=== PATIENT | female | born 1950 | race Caucasian/White ===

== ENCOUNTER 2017-06-13 16:17 | Inpatient (IN) | payer OTHER ==
[~2017-06-13] VITALS: Ht 167.6 cm; Wt 115.4 kg
[2017-06-13 17:30] VITALS: BP 131/61
[2017-06-13] MEDS ORDERED: METOPROLOL TART75 MG PO (18:01)
[2017-06-13] MEDS ORDERED: LISINOPRIL20 MG PO (18:03)
[2017-06-13] MEDS ORDERED: PAIN RELIEVER325 MG PO (18:04)
[2017-06-13] MEDS ORDERED: SENNA-EXTRA17.2 MG PO (18:07)
[2017-06-13] MEDS ORDERED: ASPIRIN81 M2 PO (18:08)
[2017-06-13] MEDS ORDERED: HEPARIN SO5000 UNIT4 SQ (18:10)
[2017-06-13] MEDS ORDERED: ATORVASTATIN CA80 MG PO (18:11)
[2017-06-13 23:02] VITALS: BP 133/60
[2017-06-14 05:36] VITALS: BP 109/74
[2017-06-14 07:50] LABS: HEMATOCRIT 37.5 % (36.0-46.0); MCH 29.9 PG (29.0-34.0); MCHC 34.1 G/DL (30.0-36.0); MCV 87.6 FL (83-99); MEAN PLAT.VOLUME 10.4 uM^3 (9.5-12.4); PLATELET COUNT 238 K/uL (156-360); RBC DIS.WIDTH-CV 12.1 % (11.8-14.6); RBC DIS.WIDTH-SD 38.9 % (39-53); RED BLOOD COUNT 4.28 M/uL (3.80-5.20); WHITE BLOOD COUNT 7.8 K/uL (4.1-10.2)
[2017-06-14 08:18] LABS: ALKALINE PHOSPHATASE 90 IU/L (3-129); ANION GAP 9 MEQ/L (2-14); CHLORIDE 107 MEQ/L (99-109); GFR ESTIMATE (CALCULATED) > 59 mL/min/; GLUCOSE 95 mg/dL (70-99); POTASSIUM 4.1 MEQ/L (3.7-5.4); SAMPLE HEMOLYSIS CHECK 0; SAMPLE ICTERIC CHECK 0; SAMPLE LIPEMIA CHECK 0; SODIUM 141 MEQ/L (136-147); UREA NITROGEN (BUN) 14 mg/dL (9-23)
[2017-06-14 15:16] VITALS: BP 101/51
[2017-06-14 23:54] VITALS: BP 134/90
[2017-06-15 05:54] VITALS: BP 124/82
[2017-06-15 12:34] VITALS: BP 110/76
[2017-06-15 15:19] VITALS: BP 116/64
[2017-06-16 04:42] VITALS: BP 105/81
[2017-06-16 15:13] VITALS: BP 96/58
[2017-06-17 04:43] VITALS: BP 100/75
[2017-06-17 09:00] VITALS: BP 105/63
[2017-06-17 10:00] VITALS: BP 118/55
[2017-06-17 11:50] LABS: C DIFF TOXIN NEGATIVE (NEGATIVE)
[2017-06-17 11:52] LABS: PROBE CHECK PASS; SPECIMEN PROCESSING CONTROL PASS
[2017-06-17 16:00] VITALS: BP 100/65
[2017-06-18 05:32] VITALS: BP 131/58
[2017-06-18 15:13] VITALS: BP 115/61
[2017-06-19 05:52] VITALS: BP 115/84
[2017-06-19 14:06] VITALS: BP 146/67
[2017-06-19 15:49] VITALS: BP 112/57
[2017-06-20 05:36] VITALS: BP 145/67
[2017-06-20 15:37] VITALS: BP 106/57
[2017-06-20 16:39] LABS: POINT-OF-CARE METER ID UU13113720
[2017-06-20 21:44] LABS: POINT-OF-CARE METER ID UU13113720
[2017-06-21 05:27] VITALS: BP 137/85
[2017-06-21 15:15] VITALS: BP 11/72
[2017-06-22 05:30] VITALS: BP 128/76
[2017-06-22 15:10] VITALS: BP 112/65
[2017-06-23 04:43] VITALS: BP 138/62
[2017-06-23 06:31] LABS: HEMATOCRIT 41.3 % (36.0-46.0); MCH 29.5 PG (29.0-34.0); MCHC 32.7 G/DL (30.0-36.0); MCV 90.2 FL (83-99); MEAN PLAT.VOLUME 10.9 uM^3 (9.5-12.4); PLATELET COUNT 260 K/uL (156-360); RBC DIS.WIDTH-CV 12.6 % (11.8-14.6); RBC DIS.WIDTH-SD 40.4 % (39-53); RED BLOOD COUNT 4.58 M/uL (3.80-5.20); WHITE BLOOD COUNT 6.2 K/uL (4.1-10.2)
[2017-06-23 06:55] LABS: ALKALINE PHOSPHATASE 89 IU/L (3-129); ANION GAP 9 MEQ/L (2-14); CHLORIDE 106 MEQ/L (99-109); GFR ESTIMATE (CALCULATED) > 59 mL/min/; GLUCOSE 99 mg/dL (70-99); SAMPLE HEMOLYSIS CHECK 0; SAMPLE ICTERIC CHECK 0; SAMPLE LIPEMIA CHECK 0; SODIUM 143 MEQ/L (136-147); TOTAL BILIRUBIN 1.3 MG/DL (0.0-1.0); UREA NITROGEN (BUN) 15 mg/dL (9-23)
[2017-06-23 15:15] VITALS: BP 90/64
[2017-06-23 15:18] VITALS: BP 93/61
[2017-06-24 05:27] VITALS: BP 113/75
[2017-06-24 15:30] VITALS: BP 100/62
[2017-06-24 20:22] VITALS: BP 130/70
[2017-06-25 04:38] VITALS: BP 119/79
[2017-06-25 15:04] VITALS: BP 118/70
[2017-06-25 20:38] VITALS: BP 114/70
[2017-06-26 05:33] VITALS: BP 128/74
[2017-06-26 15:10] VITALS: BP 104/68
[2017-06-26 20:00] VITALS: BP 121/78
[2017-06-27 05:03] VITALS: BP 104/74
[2017-06-27 16:00] VITALS: BP 110/79
[2017-06-27 21:45] VITALS: BP 116/70
[2017-06-28 02:50] LABS: ADD MIUA? YES; BILIRUBIN NEGATIVE; BLOOD NEGATIVE; COLOR AMBER ((YELLOW)); GLUCOSE (STRIP) NEGATIVE; KETONES 5; LEUKOCYTES TRACE; NITRITE NEGATIVE; PROTEIN (STRIP) NEGATIVE; SPECIFIC GRAVITY 1.027 (1.000-1.030); UROBILINOGEN 0.2 MG/DL (0.2-1.0)
[2017-06-28 03:04] LABS: AMORPHOUS URATES CRYSTALS 3+; BACTERIA 1+ /HPF; CALCIUM OXALATE CRYSTALS 3+ /HPF; CRYSTALS PRESENT; EPITHELIAL CELLS 1+ /HPF; MUCUS 1+ /LPF; RED BLOOD CELLS NONE SEEN /HPF (0-5); WHITE BLOOD CELLS 0-5 /HPF (0-5)
[2017-06-28 04:03] VITALS: BP 104/66
[2017-06-28 05:13] LABS: BASOPHIL COUNT 0.1 K/uL (0-0.1); EOSINOPHIL (%) 2.5 % (0-5); EOSINOPHIL COUNT 0.2 K/uL (0-0.3); HEMATOCRIT 44.6 % (36.0-46.0); IMMATURE GRANULOCYTE (%) 0.2 % (0.0-0.7); INSTRUMENT ABS NEUTROPHIL CT 3.7 K/uL; LYMPHOCYTE COUNT 1.7 K/uL (1.0-2.8); MCHC 32.3 G/DL (30.0-36.0); MCV 89.7 FL (83-99); MEAN PLAT.VOLUME 11.2 uM^3 (9.5-12.4); MONOCYTE (%) 6.8 % (3-12); MONOCYTE COUNT 0.4 K/uL (0-0.8); NEUTROPHIL COUNT 3.7 K/uL (1.8-6.4); PLATELET COUNT 191 K/uL (156-360); RBC DIS.WIDTH-CV 13.1 % (11.8-14.6); RBC DIS.WIDTH-SD 42.5 % (39-53); RED BLOOD COUNT 4.97 M/uL (3.80-5.20); WHITE BLOOD COUNT 6.1 K/uL (4.1-10.2)
[2017-06-28 05:25] LABS: CHLORIDE 108 mEq/L (99-109); POTASSIUM 3.8 mEq/L (3.7-5.4); SODIUM 143 mEq/L (136-147)
[2017-06-28 05:28] LABS: GLUCOSE 96 mg/dL (70-99)
[2017-06-28 05:29] LABS: ANION GAP 7 MEQ/L (2-14)
[2017-06-28 05:30] LABS: TOTAL BILIRUBIN 1.7 mg/dL (0.0-1.0)
[2017-06-28 05:31] LABS: ALKALINE PHOSPHATASE 110 IU/L (3-129); GFR ESTIMATE (CALCULATED) > 59 mL/min/
[2017-06-28 05:32] LABS: UREA NITROGEN (BUN) 13 mg/dL (9-23)
[2017-06-28 15:29] VITALS: BP 122/75
[2017-06-28 21:50] VITALS: BP 115/86
[2017-06-29 05:13] VITALS: BP 157/63
[2017-06-29 13:07] VITALS: BP 125/92
[2017-06-29 14:52] VITALS: BP 119/75
[2017-06-29 17:39] VITALS: BP 127/68
[2017-06-30 05:26] LABS: INTER. NORMALIZED RATIO 1.2; PROTHROMBIN TIME 13.8 SEC (10.2-12.9)
[2017-06-30 05:35] LABS: ALKALINE PHOSPHATASE 110 IU/L (3-129)
[2017-06-30 05:38] LABS: DIRECT BILIRUBIN 0.7 mg/dL (0.0-0.3)
[2017-06-30 05:42] VITALS: BP 126/93
[2017-06-30 07:45] VITALS: BP 117/77
[2017-06-30 10:17] LABS: HBSG INDEX 0.17
[2017-06-30 10:18] LABS: HPCA INDEX 0.17
[2017-06-30 16:50] VITALS: BP 121/87
[2017-06-30 22:38] VITALS: BP 142/87
[2017-07-01 04:51] VITALS: BP 133/72
[2017-07-01 07:10] VITALS: BP 112/74
[2017-07-01 07:18] LABS: ALKALINE PHOSPHATASE 101 IU/L (3-129); DIRECT BILIRUBIN 0.3 mg/dL (0.0-0.3); TOTAL BILIRUBIN 1.8 MG/DL (0.0-1.0)
[2017-07-01 15:41] VITALS: BP 104/74
[2017-07-01 18:23] VITALS: BP 116/66
[2017-07-02 05:02] VITALS: BP 107/56
[2017-07-02 12:32] LABS: C DIFF TOXIN NEGATIVE (NEGATIVE)
[2017-07-02 12:37] LABS: PROBE CHECK PASS; SPECIMEN PROCESSING CONTROL PASS
[2017-07-02 13:52] LABS: ANTI-SMOOTH MUSCLE (Actin)+ 20 U (<20)
[2017-07-02 15:29] VITALS: BP 110/67
[2017-07-03 06:11] VITALS: BP 134/64
[2017-07-03 09:35] LABS: EOSINOPHIL (%) 2.5 % (0-5); EOSINOPHIL COUNT 0.2 K/uL (0-0.3); HEMATOCRIT 46.4 % (36.0-46.0); IMMATURE GRANULOCYTE (%) 0.3 % (0.0-0.7); INSTRUMENT ABS NEUTROPHIL CT 5.4 K/uL; LYMPHOCYTE COUNT 1.4 K/uL (1.0-2.8); MCH 28.6 PG (29.0-34.0); MCHC 32.3 G/DL (30.0-36.0); MCV 88.5 FL (83-99); MEAN PLAT.VOLUME 11.3 uM^3 (9.5-12.4); MONOCYTE (%) 8.1 % (3-12); MONOCYTE COUNT 0.6 K/uL (0-0.8); NEUTROPHIL (%) 70.4 % (45-76); NEUTROPHIL COUNT 5.4 K/uL (1.8-6.4); PLATELET COUNT 142 K/uL (156-360); RBC DIS.WIDTH-CV 13.3 % (11.8-14.6); RBC DIS.WIDTH-SD 42.8 % (39-53); RED BLOOD COUNT 5.24 M/uL (3.80-5.20); WHITE BLOOD COUNT 7.6 K/uL (4.1-10.2)
[2017-07-03 10:24] LABS: ALKALINE PHOSPHATASE 97 IU/L (3-129); ANION GAP 9 MEQ/L (2-14); CHLORIDE 105 MEQ/L (99-109); GFR ESTIMATE (CALCULATED) 59 mL/min/; GLUCOSE 110 mg/dL (70-99); POTASSIUM 4.4 MEQ/L (3.7-5.4); SAMPLE HEMOLYSIS CHECK 0; SAMPLE ICTERIC CHECK 0; SAMPLE LIPEMIA CHECK 0; SODIUM 141 MEQ/L (136-147); UREA NITROGEN (BUN) 15 mg/dL (9-23)
[2017-07-03 10:25] LABS: TOTAL BILIRUBIN 1.3 MG/DL (0.0-1.0)
[2017-07-03 12:46] LABS: MITOCHONDRIAL (M2) ANTIBODIES+ <=20.0 U (<=20.0)
[2017-07-03] MEDS ORDERED: DIGOXIN250 MCG PO (14:19)
[2017-07-03] MEDS ORDERED: BACTRIM,SEPT1 TABLE1 PO (14:19)
[2017-07-03] MEDS ORDERED: XARELTO10 MG PO (14:19)
[2017-07-03] MEDS ORDERED: LOPRESSOR50 MG PO (14:20)
[2017-07-03] MEDS ORDERED: CITALOPRAM HBR10 MG PO (14:20)
[2017-07-03] MEDS ORDERED: Zeasorb Antifungal T TP (14:21)
[2017-07-03] MEDS ORDERED: LOPERAMIDE2 MG PO (14:21)
[2017-07-03 14:48] VITALS: BP 104/69
== END 2017-07-03 15:21 | DRG 57 ==
LOC: 3WEST 16:17 → ENPENDDIS 06-29 → EDPENDDISDT 07-02 → 3WEST 07-02 11:56
PROVIDERS: Internal Medicine Gastroenterology; Physical Medicine & Rehabilitation Pain Medicine; Psychiatry & Neurology Neurology
PROC: F07M0ZZ Range of Motion and Joint Mobility Treatment of Musculoskeletal System - Whole Body (ICD-10-PCS; principal; 2017-06-13)
DX: I69.354 Hemiplegia and hemiparesis following cerebral infarction affecting left non-dominant side (principal); R26.89 Other abnormalities of gait and mobility; E66.9 Obesity, unspecified; Z68.42 Body mass index [BMI] 45.0-49.9, adult; I48.92 Unspecified atrial flutter; R13.10 Dysphagia, unspecified; R41.4 Neurologic neglect syndrome; K80.20 Calculus of gallbladder without cholecystitis without obstruction; I10 Essential (primary) hypertension; F41.9 Anxiety disorder, unspecified; E78.5 Hyperlipidemia, unspecified; I48.1 Persistent atrial fibrillation; Z79.899 Other long term (current) drug therapy; N39.0 Urinary tract infection, site not specified; R32 Unspecified urinary incontinence; I42.9 Cardiomyopathy, unspecified; M19.90 Unspecified osteoarthritis, unspecified site; M25.552 Pain in left hip; Z98.890 Other specified postprocedural states
CPT/HCPCS: 70450; 71010; 73502; 76705; 80053; 80076; 81003; 82948; 83516 90; 85025; 85027; 85610; 86038; 86256 90; 86803; 87077; 87086; 87186; 87340; 87493; 87506; 92523 GN; 92526 GN; 92610 GN; 93005; 97110 GO; 97112 GO; 97530 GP; 97532 GN; J1644